=== PATIENT | male | born 1955 | race Caucasian/White ===

== ENCOUNTER → 2016-12-16 | Outpatient (CLI) | payer OTHER ==
[~2016-12-16] MED LIST: ADULT LOW DOSE81 MG PO; CARVEDILOL6.25 MG PO; DIABETA 5MG TABL5 MG PO; DIOVAN 80 MG TA80 M1 PO; FISH OIL 1,0001 EAC5 PO; FISH OIL 1,001000 M2 PO; GLUCOPHAGE1000 MG PO; GLUCOPHAGE500 MG PO; JANUVIA50 MG PO; LANTUS100 UNIT/M SQ; LEVOTHYROXINE0.05 MG PO; LISINOPRIL5 MG PO; MULTIVITAMINS1 EAC7 PO; PLAVIX 75 MG TA75 MG PO; PROTONIX40 M4 PO; RENEXA PO; UNICOMPLEX M TA1 TA1 PO; VITAMIN D31000 UNI2 PO; VITAMIN D3400 UNIT PO; VITAMIN E400 UNIT PO; ZOCOR 20 MG TAB20 M1 PO
--- NOTE | ~2016-12-16 | 2DMMODE ---
[facility] [place] [address] 2 D/M-MODE ECHOCARDIOGRAM Name: LEONARDO HERNANDEZ Room #: REG CL Enedelia#: [id number] Admission: 12/16/16 Attend Phys: Paco Hart MD Discharge: Date of : 51 Date of Service: 12/16/16 1412 Report #: [id number] THIS REPORT FOR: //name// Transthoracic Echocardiography Ordering physician: Paco Hart MD Referring physician: Leny Fiore MD Ticket Printer: Michelle French Indications/History: CAD, ISCM, stents, ICD, HTN, HLP, DM BP: 167 / HR: 61bpm Height: 70in Weight: 249.5lb 104 Study data: M-mode, complete 2D, complete spectral Doppler, and color Doppler. Location: Bedside. Routine. Image quality was adequate. The study was technically limited due to body habitus. Intravenous contrast (Definity) was administered. 2D measurements Normal Normal LVID ED 55.6mm 36-57 IVS ED 14.7mm 6-11 LVID ES 42.1mm 23-40 LVPW ED 12.1mm 6-11 LA volume 30ml/m2 16-28 AoRoot diam 37.4mm 21-37 index ED LVOT diameter 24mm 18-23 Findings: Left ventricle: The cavity size was at the upper limits of normal. Wall thickness was increased in a pattern of mild LVH. Systolic function was moderately reduced. The estimated ejection fraction was in the range of 35% to 40%. Regional wall motion abnormalities: Hypokinesis of the apical anterior, mid anteroseptal, apical inferior, and apical septal myocardium. Right ventricle: The cavity size was mildly dilated. Pacer wire or catheter noted in right ventricle. Systolic function was normal. [facility] [address] [place] [address] 2 D/M-MODE ECHOCARDIOGRAM Name: LEONARDO HERNANDEZ Room #: REG [facility] [id number] Admission: 12/16/16 Attend Phys: Paco Hart MD Discharge: Date of : 51 Date of Service: 12/16/16 1412 Report #: [id number] Right atrium: The atrium was mildly dilated. Left atrium: The atrium was mildly dilated. Volume index: 30ml/m2 (S). Aortic valve: Structurally normal valve. Mildly sclerotic leaflets. Doppler: There was no stenosis. No regurgitation. Peak velocity: 123.4cm/s (S). Mitral valve: Structurally normal valve. Doppler: There was no evidence for stenosis. Trivial regurgitation. Peak E-wave velocity: 59.5cm/s. Peak A-wave velocity: 48.6cm/s. Tricuspid valve: Structurally normal valve. Doppler: There was no evidence for stenosis. Mild regurgitation. Regurgitant peak velocity: 216cm/s. Peak RV-RA gradient: 19mm Hg (S). Pulmonic valve: Structurally normal valve. Doppler: There was no evidence for stenosis. Trivial regurgitation. Pericardium: There was no pericardial effusion. Aorta: Aortic root: The aortic root was upper limits ofnormal in size. Pulmonary artery: Systolic pressure was estimated to be 22mm Hg. Diastolic function: Features are consistent with a pseudonormal left ventricular filling pattern, with concomitant abnormal relaxation and increased filling pressure (grade 2 diastolic dysfunction). Systemic veins: Inferior vena cava: The vessel was normal in size; the respirophasic diameter changes were in the normal range (= 50%). Conclusions 1. Left ventricle: The cavity size was at the upper limits of normal. Wall thickness was increased in a pattern of mild LVH. 2. Right ventricle: The cavity size was mildly dilated. 3. Right atrium: The atrium was mildly dilated. 4. Left atrium: The atrium was mildly dilated. 5. Mitral valve: Trivial regurgitation. 6. Tricuspid valve: Mild regurgitation. <ELECTRONICALLY SIGNED> By: Paco Hart MD 12/16/16 1536 1412 1536 Paco Hart MD /lukasz
== END ==
LOC: CV 13:16
DX: I25.10 Atherosclerotic heart disease of native coronary artery without angina pectoris (principal); I25.5 Ischemic cardiomyopathy; I10 Essential (primary) hypertension; E78.5 Hyperlipidemia, unspecified

== ENCOUNTER → 2017-02-16 | Outpatient (CLI) | payer OTHER ==
[~2017-02-16] VITALS: Ht 180.3 cm; Wt 113.4 kg
[~2017-02-16] MED LIST changes: +LIPITOR40 MG PO
--- NOTE | ~2017-02-16 | P ---
[facility] [place] [address] PROCEDURE REPORT Name: LEONARDO HERNANDEZ Room #: REG Mario Mcdaniels.#: [id number] Admission: 02/16/17 Attend Phys: Camron Santos MD Discharge: Date of : 51 Report #: [id number] THIS REPORT FOR: //name// CC: Camron Fiore DATE OF SERVICE: 02/16/2017 PROCEDURE PERFORMED: ICD generator exchange. PREOPERATIVE DIAGNOSIS: ICD battery malfunction. POSTOPERATIVE DIAGNOSIS: ICD battery malfunction. HISTORY: The patient is a 61-year-old with history of a cardiomyopathy, status post [employer] ICD implantation, who recently had an alert on his device demonstrating premature battery depletion with an air code of 1003. Based on this air code, the device requires generator exchange. ANESTHESIA: The patient underwent MAC anesthesia with no anesthesia-related complications. DESCRIPTION OF PROCEDURE: The patient underwent the informed consent. We discussed the details of the procedure including the risks, which include but are not limited to bleeding, infection and need for possible lead revisions. He understood these risks and is willing to proceed. As such, he was brought to the EP lab in a fasting and sedated state and received IV antibiotics prior to initiation of the procedure. Next, I injected 10-15 mL of lidocaine at the prior incision site. The incision was opened and the chronic pocket was entered. The device was taken out of the pocket. I took out the superior aspect of the capsule and I made a small hole at the bottom of the pocket with cautery. There was no significant bleeding noted. The old device was disconnected and new device was connected and tested and found to be functioning normally. Next, a [employer] antibiotic pouch was placed in the pocket with the device and then the pocket was irrigated with vancomycin. Then the pocket was closed in 3 layers using 2-0 for the deep layer, 3-0 for the mid layer and 4-0 for the subcuticular layer. Surgical glue was placed at the outer skin layer. The patient awoke neurologically and hemodynamically intact. No complications and no significant bleeding. The explanted device was a [employer] Teligen [id number]. Serial number was [id number]. The newly implanted generator was a [employer] model #[id number], serial #[id number]. The atrial lead was a [employer] model #4136, serial #[id number] with a P-wave of 5 millivolts, pacing impedance of 530 [facility] [address] [place] [address] PROCEDURE REPORT Name: LEONARDO HERNANDEZ Room #: REG ARJUN Spangler#: [id number] Admission: 02/16/17 Attend Phys: Camron Santos MD Discharge: Date of : 51 Report #: [id number] ohms and pacing threshold of 0.75 volts at 0.4 milliseconds. The RV lead was a [employer] model #0184, serial #[id number]. Both leads were implanted on 07/16/2010. This RV lead demonstrated R waves greater than 12, pacing impedance of 410 ohms and pacing threshold 1.25 volts at 0.5 milliseconds. The device was programmed to the DDD 60-110 mode. There was a VT-1 monitor zone programmed on at 140. The VT zone was set at 181 with ATP, followed by max output shocks. The VF zone was set at 214 beats per minute with ATP while charging, followed by max output shocks. CONCLUSIONS: 1. Successful implantable cardioverter defibrillator generator exchange. 2. Satisfactory atrial and ventricular pacing and sensing thresholds. By: 0935 1020 Camron Santos MD /nt
[2017-02-16 06:56] VITALS: BP 143/81
[2017-02-16 07:28] LABS: ABSOLUTE NEUTROPHILS 5.6 thou/uL (1.4-8.2); BASOPHILS 0.8 % (0.0-2.0); EOSINOPHILS 4.2 % (0.0-3.0); HEMATOCRIT 46.3 % (42.0-52.0); HEMOGLOBIN 15.6 gm/dL (14.0-18.0); LYMPHOCYTES 14.4 % (24.0-44.0); MCH 30.7 pg (26.0-34.0); MCHC 33.7 g/dL (28.0-37.0); MCV 91.1 fL (80.0-100.0); PLATELET COUNT 180 thou/uL (150-400); POLYS 72.6 % (36.0-66.0); RBC 5.09 mil/uL (4.50-6.00); RDW 14.4 % (10.5-14.5); WBC 7.8 thou/uL (4.0-11.0)
[2017-02-16 07:30] LABS: MANUAL DIFF NO
[2017-02-16 07:39] LABS: APTT 29.7 Seconds (24.5-32.8); INR 1.1; PROTIME 11.7 Seconds (9.3-11.4)
[2017-02-16 07:47] LABS: CALCIUM 9.1 mg/dL (8.5-10.1); CREATININE 1.3 mg/dL (0.6-1.3); POTASSIUM 4.2 mmol/L (3.5-5.1)
[2017-02-16 07:49] LABS: ALBUMIN 3.9 g/dL (3.4-5.0); TOTAL BILIRUBIN 0.7 mg/dL (<0.1-1.0); TOTAL PROTEIN 7.3 g/dL (6.4-8.2)
== END ==
LOC: CATH 06:36
PROVIDERS: Internal Medicine Cardiovascular Disease
DX: Z45.010 Encounter for checking and testing of cardiac pacemaker pulse generator [battery] (principal); I42.8 Other cardiomyopathies; I10 Essential (primary) hypertension; E11.9 Type 2 diabetes mellitus without complications; I25.10 Atherosclerotic heart disease of native coronary artery without angina pectoris; E78.5 Hyperlipidemia, unspecified; Z90.49 Acquired absence of other specified parts of digestive tract
CPT/HCPCS: 62110; 62900; 70005

== ENCOUNTER → 2020-01-08 | Outpatient (CLI) | payer OTHER | LOC: SJCVC 14:27 | DX: I21.29 ST elevation (STEMI) myocardial infarction involving other sites (principal); I45.19 Other right bundle-branch block; I25.5 Ischemic cardiomyopathy; I10 Essential (primary) hypertension; E78.00 Pure hypercholesterolemia, unspecified; I25.110 Atherosclerotic heart disease of native coronary artery with unstable angina pectoris; Z79.899 Other long term (current) drug therapy; Z79.4 Long term (current) use of insulin; Z90.49 Acquired absence of other specified parts of digestive tract ==

== ENCOUNTER → 2020-01-10 | Outpatient (CLI) | payer OTHER ==
[~2020-01-10] VITALS: Ht 180.3 cm; Wt 113.4 kg
[2020-01-10 08:19] VITALS: BP 128/77
[2020-01-10 08:43] LABS: HEMATOCRIT 45.2 % (42.0-52.0); HEMOGLOBIN 14.9 gm/dL (14.0-18.0); MCH 31.1 pg (26.0-34.0); RBC 4.81 mil/uL (4.50-6.00); RDW 14.2 % (10.5-14.5); WBC 7.1 thou/uL (4.0-11.0)
--- NOTE | 2020-01-10 08:46 | EKG ---
[facility] [address] [facility] [place] [address] ELECTROCARDIOGRAM REPORT Name: LEONARDO HERNANDEZ Room #: REG [facility]#: [id number] Admission: 01/10/20 Attend Phys: Paco Hart MD Discharge: Date of : 51 Report #: [id number] THIS REPORT FOR: cc: Leny Fiore,Leny Meyer,Camron Bobby MD ~ THIS REPORT FOR: //name// [facility] Test Date: 2020-01-10 Test Time: 08:24:15 Pat Name: LEONARDO HERNANDEZ Department: Room: Gender: Toolmaker: Naman GOMEZ : 1955 Requested By: Paco Hart Order Number: [id number] MD: Camron Santos Measurements Intervals [place] Rate: 60 P: GA: 173 QRS: -18 QRSD: 114 T: 112 QT: 411 QTc: 411 Interpretive Statements Sinus rhythm Incomplete right bundle branch block Anterior infarct, old Compared to ECG 02/26/2016 09:04:02 Electronically Signed On 01-10-2020 8:45:40 SOUND SYSTEM INSTALLER by Camron Santos [email or web address] <ELECTRONICALLY SIGNED> By: Camron Santos MD 01/10/2045 3 3 Camron Santos MD /AJAY
[2020-01-10 09:00] LABS: CALCIUM 9.1 mg/dL (8.5-10.1); CREATININE 1.6 mg/dL (0.7-1.3); POTASSIUM 4.1 mmol/L (3.5-5.1)
--- NOTE | 2020-01-10 15:05 | CATHLAB ---
[facility] [place] [address] INVASIVE PROCEDURE REPORT Name: LEONARDO HERNANDEZ Room #: REG ARJUN Angelina.#: [id number] Admission: 01/10/20 Attend Phys: Paco Hart MD Discharge: Date of : 51 Report #: [id number] THIS REPORT FOR: cc: Leny Fiore Tara DO Park, Jin S. MD ~ APPROVED REPORT Study performed: 01/10/2020 09:10:32 Patient Details Patient Status: Out-Patient Room #: The patient is a 64 year-old male Event Personnel Paco Hart Manager Of Disaster Recovery, Ashley Schrader RN RN, Raul Meredith RTR Monitor, Cora Elias RTR, WRAPPER OPENER Monitor, Kings Garcia Scrkami Procedures Performed Art Access - R femoral artery* Left Heart Cath w/or w/o Coronaries [id number] [facility] [address] Initial Mod Sed Same Phys/QHP Gr5y 193436 Hemostasis with Manual pressure Indication Dyspnea, Chest pain Risk Factors HypercholesterolemiaPhysical Activity, Coronary Artery DiseaseHypertension, Diabetes Previous Procedures/Diagnoses Previous PCI, Previous VT Procedure Narrative The patient was brought electively to the Cardiac Catheterization Laboratory and was prepped and draped in a sterile manner. The Right Groin^ was infiltrated with 1% Lidocaine subcutaneous anesthesia. A PINNACLE 4FR Sheath #[id number] sheath was inserted into the RFA^. Coronary angiography was performed using coronary diagnostic catheters. The right coronary system was accessed and visualized with a JR4 catheter. The left coronary system was accessed and visualized with a 4FR JL 5.0 #[id number] catheter. The left ventricle was accessed and visualized with a PIGTAIL catheter. Left ventriculogram was [facility] [place] [address] INVASIVE PROCEDURE REPORT Name: LEONARDO HERNANDEZ Room #: REG [facility]#: [id number] Admission: 01/10/20 Attend Phys: Paco Hart MD Discharge: Date of : 51 Report #: [id number] performed in 30 degree projection. Hemostasis was obtained with manual pressure following sheath removal without any complications. The patient tolerated the procedure well and there were no complications associated with the procedure. There was no hematoma. Intraoperative Conscious Sedation Sedation start time: 9.28 Case end Time: 9.44 Fentanyl 50 mcg Versed 1 mg Fluoro Time: 2.28 minutes Dose: DAP 4831.80 cGycm2 662 mGy Contrast Type and Amount: Visipaque 40 ml Coronary Angiography The patient's coronary anatomy is right dominant. Diagnostic Cath Left Main The left main artery is a moderate to large caliber vessel, patent with no flow-limiting lesions. LAD There are multiple overlapping stents starting from the proximal LAD and extending into the mid segment of the LAD. There is mild diffuse restenosis, 20-30%. Diagonal 1 This is a small-caliber vessel, with mild disease proximally. Circumflex There is a stent in the midsegment, patent with mild restenosis, 20%. Supplies OM 2. OM1 There is a stent in the proximal segment, patent with mild restenosis, 20%. OM2 Status post patent, with no flow-limiting lesions. Right Coronary The RCA is a dominant vessel with mild disease in the proximal distal segments, 20%. R PDA This is a patent vessel, with no flow-limiting lesions. RPLV This is a patent vessel, with no flow-limiting lesions. Left Ventriculography Left Ventriculography was not performed. An LVEDP was measured and there is no gradient across the outflow tract. Hemodynamics The aortic pressure is 115/66 mmHg with a mean of 84 mmHg. The left ventricular pressure is 115/10 mmHg with a mean of mmHg. [place] [address] mmHg. [facility] [address] [place] [address] INVASIVE PROCEDURE REPORT Name: LEONARDO HERNANDEZ Room #: REG CL [facility]#: [id number] Admission: 01/10/20 Attend Phys: Paco Hart MD Discharge: Date of : 51 Report #: [id number] Conclusion 1. There are patent stents with mild restenosis in the LAD, OM1 and left circumflex arteries. 2. There is mild disease in the RCA. 3. Recommend aggressive risk factor management. <ELECTRONICALLY SIGNED> By: Paco Hart MD 01/10/20 1504 1504 1504 Paco Hart MD /INF
== END | disposition home or self-care (01) ==
LOC: CATH 07:52
PROVIDERS: Internal Medicine Cardiovascular Disease
DX: I25.10 Atherosclerotic heart disease of native coronary artery without angina pectoris (principal); T82.855A Stenosis of coronary artery stent, initial encounter; I10 Essential (primary) hypertension; E11.9 Type 2 diabetes mellitus without complications; E78.5 Hyperlipidemia, unspecified; I42.9 Cardiomyopathy, unspecified; Z98.890 Other specified postprocedural states; Z79.899 Other long term (current) drug therapy; Z88.0 Allergy status to penicillin; Z79.4 Long term (current) use of insulin; Z90.49 Acquired absence of other specified parts of digestive tract; Z79.82 Long term (current) use of aspirin

== ENCOUNTER → 2020-08-07 | Outpatient (CLI) | payer OTHER | LOC: SJCVC 08:59 | PROVIDERS: ATTEND Internal Medicine Cardiovascular Disease | DX: Z45.02 Encounter for adjustment and management of automatic implantable cardiac defibrillator (principal); I45.10 Unspecified right bundle-branch block; R94.31 Abnormal electrocardiogram [ECG] [EKG]; I42.9 Cardiomyopathy, unspecified; I25.10 Atherosclerotic heart disease of native coronary artery without angina pectoris; I10 Essential (primary) hypertension; I25.5 Ischemic cardiomyopathy; E11.9 Type 2 diabetes mellitus without complications; E78.00 Pure hypercholesterolemia, unspecified; Z79.82 Long term (current) use of aspirin; Z82.49 Family history of ischemic heart disease and other diseases of the circulatory system; Z79.899 Other long term (current) drug therapy ==

== ENCOUNTER → 2021-02-11 | Outpatient (CLI) | payer OTHER | LOC: SJCVCIMAG 07:27 | PROVIDERS: ATTEND Internal Medicine Cardiovascular Disease | DX: Z45.02 Encounter for adjustment and management of automatic implantable cardiac defibrillator (principal); I07.1 Rheumatic tricuspid insufficiency; R94.31 Abnormal electrocardiogram [ECG] [EKG]; I45.10 Unspecified right bundle-branch block; I11.9 Hypertensive heart disease without heart failure; I25.10 Atherosclerotic heart disease of native coronary artery without angina pectoris; I25.5 Ischemic cardiomyopathy; E78.00 Pure hypercholesterolemia, unspecified; E11.9 Type 2 diabetes mellitus without complications; I49.9 Cardiac arrhythmia, unspecified; E78.5 Hyperlipidemia, unspecified; R60.0 Localized edema; Z88.0 Allergy status to penicillin; Z79.82 Long term (current) use of aspirin; Z79.899 Other long term (current) drug therapy; Z95.810 Presence of automatic (implantable) cardiac defibrillator ==

== ENCOUNTER → 2021-03-11 | Outpatient (CLI) | payer OTHER | LOC: SJCVC 10:02 | PROVIDERS: ATTEND Internal Medicine Cardiovascular Disease | DX: R94.31 Abnormal electrocardiogram [ECG] [EKG] (principal); I45.10 Unspecified right bundle-branch block; I11.9 Hypertensive heart disease without heart failure; I25.5 Ischemic cardiomyopathy; I25.10 Atherosclerotic heart disease of native coronary artery without angina pectoris; E78.00 Pure hypercholesterolemia, unspecified; E11.9 Type 2 diabetes mellitus without complications; Z95.810 Presence of automatic (implantable) cardiac defibrillator; Z90.49 Acquired absence of other specified parts of digestive tract; Z98.890 Other specified postprocedural states; Z98.61 Coronary angioplasty status; Z88.0 Allergy status to penicillin; Z79.82 Long term (current) use of aspirin; Z79.4 Long term (current) use of insulin; Z79.899 Other long term (current) drug therapy; Z82.49 Family history of ischemic heart disease and other diseases of the circulatory system ==

== ENCOUNTER → 2021-03-19 | Outpatient (CLI) | payer OTHER | LOC: SJCVCIMAG 06:55 | PROVIDERS: ATTEND Internal Medicine Cardiovascular Disease | DX: R00.0 Tachycardia, unspecified (principal); I49.3 Ventricular premature depolarization; I25.10 Atherosclerotic heart disease of native coronary artery without angina pectoris; I25.5 Ischemic cardiomyopathy; I10 Essential (primary) hypertension; E78.00 Pure hypercholesterolemia, unspecified; I25.2 Old myocardial infarction; E11.9 Type 2 diabetes mellitus without complications; R42 Dizziness and giddiness; R60.9 Edema, unspecified; E78.5 Hyperlipidemia, unspecified; Z95.810 Presence of automatic (implantable) cardiac defibrillator; Z90.49 Acquired absence of other specified parts of digestive tract; Z98.61 Coronary angioplasty status; Z88.0 Allergy status to penicillin; Z79.82 Long term (current) use of aspirin; Z79.4 Long term (current) use of insulin; Z79.899 Other long term (current) drug therapy; Z82.49 Family history of ischemic heart disease and other diseases of the circulatory system ==

== ENCOUNTER → 2021-04-23 | Outpatient (CLI) | payer OTHER | LOC: SJCVC 13:51 | PROVIDERS: ATTEND Internal Medicine Cardiovascular Disease | DX: I25.10 Atherosclerotic heart disease of native coronary artery without angina pectoris (principal); I25.5 Ischemic cardiomyopathy; I10 Essential (primary) hypertension; E78.00 Pure hypercholesterolemia, unspecified; E11.9 Type 2 diabetes mellitus without complications; Z95.810 Presence of automatic (implantable) cardiac defibrillator; Z79.82 Long term (current) use of aspirin; Z79.899 Other long term (current) drug therapy; Z79.4 Long term (current) use of insulin; Z88.0 Allergy status to penicillin ==

== ENCOUNTER → 2021-05-07 | Outpatient (CLI) | payer OTHER | LOC: SJCVC 13:27 | PROVIDERS: ATTEND Internal Medicine Cardiovascular Disease | DX: R94.31 Abnormal electrocardiogram [ECG] [EKG] (principal); I11.9 Hypertensive heart disease without heart failure; I45.10 Unspecified right bundle-branch block; I25.10 Atherosclerotic heart disease of native coronary artery without angina pectoris; I25.5 Ischemic cardiomyopathy; E78.00 Pure hypercholesterolemia, unspecified; R60.9 Edema, unspecified; E11.9 Type 2 diabetes mellitus without complications; Z79.82 Long term (current) use of aspirin; Z79.899 Other long term (current) drug therapy; Z88.0 Allergy status to penicillin; Z82.49 Family history of ischemic heart disease and other diseases of the circulatory system ==

== ENCOUNTER → 2021-09-07 | Outpatient (CLI) | payer OTHER | LOC: SJCVC 10:16 | PROVIDERS: ATTEND Internal Medicine Cardiovascular Disease | DX: R94.31 Abnormal electrocardiogram [ECG] [EKG] (principal); I45.10 Unspecified right bundle-branch block; I25.5 Ischemic cardiomyopathy; I25.10 Atherosclerotic heart disease of native coronary artery without angina pectoris; E78.00 Pure hypercholesterolemia, unspecified; I11.9 Hypertensive heart disease without heart failure; E11.9 Type 2 diabetes mellitus without complications; Z88.0 Allergy status to penicillin; Z79.82 Long term (current) use of aspirin; Z79.899 Other long term (current) drug therapy; Z95.810 Presence of automatic (implantable) cardiac defibrillator ==